=== PATIENT | male | born 1990 ===

== ENCOUNTER 2017-06-01 12:11 | Emergency (ER) | payer MEDICAID ==
[2017-06-01 12:52] VITALS: BMI 22.3
[2017-06-01] MEDS ORDERED: Lidocaine 5% Patch TD STA (13:55)
[2017-06-01] MEDS ORDERED: Lidocaine 5% Patch TD ONE (14:11)
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
[2017-06-01 15:12] VITALS: BP 110/77; PULSE 62; RESP 18; TEMP 98
[2017-06-01 16:36] VITALS: O2SAT 100
== END 2017-06-01 14:45 | disposition home or self-care (01) ==
LOC: C.ER 12:11
DX: S39.012D Strain of muscle, fascia and tendon of lower back, subsequent encounter (principal); V89.2XXD Person injured in unspecified motor-vehicle accident, traffic, subsequent encounter

== ENCOUNTER 2017-06-22 19:11 | Emergency (ER) | payer OTHER ==
[2017-06-22 19:12] VITALS: BMI 22.3
[2017-06-22] MEDS ORDERED: Sodium Chloride 0.9% 1,000 ML IV ONE (19:59)
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
[2017-06-22 20:09] LABS: BASO % 0.2 % (0.0-2.0); EOS % 0.4 % (0.0-4.0); HEMOGLOBIN 17.1 g/dL (12.0-18.0); LYMPH # 0.4 K/uL (1.0-4.3); LYMPH % 3.9 % (20.0-40.0); MEAN CELL VOLUME 90.8 fL (80.0-94.0); MEAN CORPUSCULAR HEMOGLOBIN 31.2 pg (27.0-31.0); MEAN CORPUSCULAR HGB CONC 34.4 g/dL (33.0-37.0); MEAN PLATELET VOLUME 8.5 fL (7.2-11.7); MONO # 0.7 K/uL (0.0-0.8); MONO % 6.2 % (0.0-10.0); NEUT # 10.1 K/uL (1.8-7.0); NEUT % 89.3 % (50.0-75.0); NRBC % 0.1 % (0.0-2.0); PLATELET COUNT 287 K/uL (130-400); RBC 5.49 Mil/uL (4.40-5.90); RED CELL DISTRIBUTION WIDTH 13.2 % (11.5-14.5); WHITE BLOOD COUNT 11.3 K/uL (4.8-10.8)
[2017-06-22] MEDS ORDERED: Sodium Chloride 0.9% 1,000 ML ONE (20:20)
[2017-06-22 20:25] LABS: ALB/GLOB RATIO 1.1 (1.0-2.1); ALBUMIN 4.8 g/dL (3.5-5.0); ALT/SGPT 22 U/L (21-72); AST/SGOT 24 U/L (17-59); BLOOD UREA NITROGEN 12 mg/dL (9-20); CALCIUM 9.3 mg/dl (8.6-10.4); GFR AFRICAN-AMERICAN > 60; GFR NON-AFRICAN AMERICAN > 60
[2017-06-22 20:59] VITALS: BP 121/71; PULSE 88; RESP 18; TEMP 98.6
[2017-06-22 21:04] VITALS: O2SAT 98
[2017-06-22 21:05] LABS: LYMPHOCYTE 4 % (20-40); MONOCYTE 6 % (0-10); NEUTROPHIL 90 % (50-75); PLATELET ESTIMATE NORMAL (NORMAL); TOTAL CELLS COUNTED 100
[2017-06-22 21:06] LABS: ANISOCYTOSIS SLIGHT
== END 2017-06-22 21:01 | disposition home or self-care (01) ==
LOC: C.ER 19:11
DX: T62.8X1A Toxic effect of other specified noxious substances eaten as food, accidental (unintentional), initial encounter (principal); Y92.89 Other specified places as the place of occurrence of the external cause
CPT/HCPCS: 80053; 85025; 96360; 99284; J7040

== ENCOUNTER 2017-10-19 15:34 | Emergency (ER) | payer SELFPAY ==
[2017-10-19 15:34] VITALS: BMI 22.3
[2017-10-19 15:46] VITALS: BP 128/73; PULSE 84; RESP 16; TEMP 98; O2SAT 99
[2017-10-19] MEDS ORDERED: Lidocaine 5% Patch TD STA (16:12)
[2017-10-19] MEDS ORDERED: Lidocaine 5% Patch TD ONE (16:30)
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
--- NOTE | 2017-10-19 17:06 | RAD ---
PROCEDURE: Radiographs of the Lumbar Spine. HISTORY: back pain COMPARISON: No prior. FINDINGS: BONES: Straightened curvature. No fracture or spondylolisthesis. No destructive bony lesion appreciated. DISC SPACES: Unremarkable. OTHER FINDINGS: None. IMPRESSION: Straightened lumbar curvature without fracture or spondylolisthesis appreciable.
== END 2017-10-19 16:59 | disposition home or self-care (01) ==
LOC: C.ER 15:34
DX: M54.5 Low back pain (principal)
CPT/HCPCS: 72100; 96372; 99283; J1885